=== PATIENT | female | born 1990 | race Caucasian/White ===

== ENCOUNTER 2017-02-26 16:01 | Emergency (ER) | payer MEDICAID ==
[~2017-02-26] VITALS: Ht 152.4 cm; Wt 57.5 kg
[2017-02-26 16:04] VITALS: Ht 152.4 cm; Wt 57.5 kg
--- NOTE | 2017-02-26 18:41 | ERD ---
ER Documentation Chief Complaint Date/Time DATE: 02/26/17 TIME: 18:39 Chief Complaint l/l/q abd pain x 4 days HPI 26-year-old female presents here in emergency department for complaints of left lower quadrant pelvic/abdominal pain for 4 days. Patient discussed the pain as sharp pain, 6/10 scale, not better or worse with anything. Patient so there are days that she cannot defecate. Patient denies any hard stools. Patient denies any hematuria or dysuria. Patient denies any fever or chills. Patient denies any nausea or vomiting. ROS All systems reviewed and are negative except as per history of present illness. Medications Home Meds Reported Medications [none] Unknown Strength No Conflict Check 02/26/17 Allergies Allergies: Coded Allergies: No Known Allergy (Unverified , 02/26/17) PMhx/Soc Medical and Surgical Hx: pt denies Medical Hx, pt denies Surgical Hx FmHx Family History: No coronary disease, No diabetes, No other Physical Exam Vitals Vital Signs Date Time Temp Pulse Resp B/P Pulse Ox O2 Delivery O2 Flow Rate FiO2 02/26/17 16:04 98.6 65 18 98/59 99 Physical Exam GENERAL: The patient is well developed and appropriate for usual state of health, in no apparent distress. CHEST: Clear to auscultation bilaterally. There are no rales, wheezes or rhonchi. HEART: Regular rate and rhythm. No murmurs, clicks, rubs or gallops. No S3 or S4. ABDOMEN: Soft, left lower pelvic quadrant tenderness noted. Good bowel sounds. No rebound or guarding. No gross peritonitis. No gross organomegaly or masses. No Valencia sign or McBurney point tenderness. BACK: No midline or flank tenderness. EXTREMITIES: Equal pulses bilaterally. There is no peripheral clubbing, cyanosis or edema. No focal swelling or erythema. Full range of motion. Grossly neurovascularly intact. NEURO: Alert and oriented. Cranial nerves 2-12 intact. Motor strength in all 4 extremities with 5/5 strength. Sensation grossly intact. Normal speech and gait. SKIN: There is no apparent rash or petechia. The skin is warm and dry. HEMATOLOGIC AND LYMPHATIC: There is no evidence of excessive bruising or lymphedema. No gross cervical, axillary, or inguinal lymphadenopathy. Result Diagram: 02/26/17184702/26/171847 Results 24 hrs Laboratory Tests Test 02/26/17 18:48 02/26/17 19:03 White Blood Count 8.910^3/ul Red Blood Count 4.4610^6/ul Hemoglobin 13.2g/dl Hematocrit 38.0% Mean Corpuscular Volume 85.2fl Mean Corpuscular Hemoglobin 29.6pg Mean Corpuscular Hemoglobin Concent 34.7g/dl Red Cell Distribution Width 11.9% Platelet Count 23831^3/UL Mean Platelet Volume 10.6fl Neutrophils % 60.2% Lymphocytes % 29.6% Monocytes % 7.4% Eosinophils % 1.7% Basophils % 0.9% Nucleated Red Blood Cells % 0.0/100WBC Neutrophils # 5.410^3/ul Lymphocytes # 2.610^3/ul Monocytes # 0.710^3/ul Eosinophils # 0.210^3/ul Basophils # 0.110^3/ul Nucleated Red Blood Cells # 0.010^3/ul Sodium Level 144mmol/L Potassium Level 3.6mmol/L Chloride Level 101mmol/L Carbon Dioxide Level 26mmol/L Anion Gap 21 Blood Urea Nitrogen 10mg/dl Creatinine 0.61mg/dl Glucose Level 84mg/dl Calcium Level 9.3mg/dl Total Bilirubin 0.9mg/dl Direct Bilirubin 0.00mg/dl Indirect Bilirubin 0.9mg/dl Aspartate Amino Transf (AST/SGOT) 30IU/L Alanine Aminotransferase (ALT/SGPT) 47IU/L Alkaline Phosphatase 97IU/L Total Protein 8.2g/dl Albumin 4.7g/dl Globulin 3.50g/dl Albumin/Globulin Ratio 1.34 Lipase 91U/L Bedside Urine pH (LAB) 5.5 Bedside Urine Protein (LAB) Negative Bedside Urine Glucose (UA) Negative Bedside Urine Ketones (LAB) Negative Bedside Urine Blood Negative Bedside Urine Nitrite (LAB) Negative Bedside Urine Leukocyte Esterase (L Negative PROCEDURE: CT of the abdomen and pelvis without contrast CLINICAL INDICATION: Abdominal Pain. TECHNIQUE: Spiral CT images through the abdomen and pelvis without the use of contrast. The administered radiation dose is CTDI 6.24 and DLP 352.2. One or more of the following dose reduction techniques were used: automated exposure control, adjustment of the mA and/or kV according to patient size, or use of iterative reconstruction technique. COMPARISON: None FINDINGS: Lack of oral and intravenous contrast somewhat limits evaluation. Slight dependent atelectasis of the lung bases is seen. No pleural effusion is seen. The liver, spleen, adrenals, kidneys, and pancreas are unremarkable in appearance. Unremarkable gallbladder. No biliary or pancreatic ductal dilatation is seen.. No gross bowel obstruction, free air, or abscess. The appendix is not identified. evidence for diverticulitis. IUD device is seen in place. Mild free fluid is seen in the cul-de-sac. No gross adnexal mass lesion. No adenopathy or ascites is seen. No bony abnormality is seen.. IMPRESSION: IUD device. Mild pelvic free fluid without definite adnexal mass. The appendix is not identified. If there is strong clinical suspicion for appendicitis, repeat study with oral contrast would be suggested. RPTAT: HLBE Physician Olivia Date Time Electronically viewed and signed by Stephanie Goins Physician on 02/26/2017 19 :53 LE/ CC: MOISE RIDER COBBLER MCKAY PROCEDURE: US Pelvis. CLINICAL INDICATION: Abdominal Pain TECHNIQUE: Multiple sonographic images of the pelvis were obtained utilizing a transabdominal and endovaginal technique. The images were reviewed on a PACS workstation. COMPARISON: None. FINDINGS: The uterus is visualized and measures 3.8 x 4.5 x 8.0 cm. The endometrial echo complex is normal and measures 8.0 mm . A centrally located intrauterine device is present. The right ovary measures 2.1 x 2.4 x 4.1 cm The left ovary measures 1.5 x 2.3 x 3.9 cm. There is normal vascular flow to both ovaries. There is moderate free fluid in the pelvis and left adnexa. IMPRESSION: 1. There is moderate free fluid in the pelvis and left adnexa. 2. A centrally located intrauterine device is present. 3. Otherwise, no significant abnormalities are identified. RPTAT:AAJJ Cecil Rodriguez Physician Date Time Electronically viewed and signed by Cecil Rodriguez Physician on 02/26/2017 19: 52 MC/ CC: MOISE RIDER NP Procedures/MDM Medical Decision Making: Patient lower abdominal pain/pelvic pain nonspecific at this time. Patient is due to get her menstruation this week. No diverticulitis noted. No symptoms of any ovarian torsion. There is low suspicion for abdominal emergencies at this time. Patients abdominal exam is normal at this time. Patients radiology exam does not show any abdominal emergencies at this time. There is low suspicion for appendicitis, cholecystitis , abdominal aortic aneurysms or peritonitis at this time. There is low suspicion for sepsis. Patient appears well and is hemodynamically stable. Disposition: Home. Condition: Stable Prescription tramadol, ibuprofen Instructions: Patient is advised to take medications as prescribed. Patient is advised to rest, increase fluid intake and do brat diet for next 1-2 days and progress as tolerated. Patient is advised that if symptoms are worse, severe abdominal pain, uncontrolled vomiting, high fever, severe flank pain, worst signs and symptoms, to return to the emergency department immediately. Otherwise, patient can follow up with primary care doctor in 5-7 days. Departure Diagnosis: Primary Impression: Abdominal pain Abdominal location: left lower quadrant Qualified Code: R10.32 - Left lower quadrant pain Condition: Stable Patient Instructions: Abdominal Pain Additional Instructions: Patient is advised to take medications as prescribed. Patient is advised to rest , increase fluid intake and do brat diet for next 1-2 days and progress as tolerated. Patient is advised that if symptoms are worse, severe abdominal pain , uncontrolled vomiting, high fever, severe flank pain, worst signs and symptoms , to return to the emergency department immediately. Otherwise, patient can follow up with primary care doctor in 5-7 days. MOISE RIDER NP Feb 26, 2017 18:41
[2017-02-26 18:58] LABS: URINE BLOOD (Dip) POC Negative (NEGATIVE)
[2017-02-26 18:59] LABS: BASOPHIL # 0.1 10^3/ul (0.0-0.1); BASOPHILS % 0.9 % (0.0-2.0); EOSINOPHILS # 0.2 10^3/ul (0.0-0.5); EOSINOPHILS % 1.7 % (0.0-7.0); HEMOGLOBIN 13.2 g/dl (12.0-16.0); LYMPHOCYTES # 2.6 10^3/ul (0.8-2.9); LYMPHOCYTES % 29.6 % (15.0-51.0); MEAN CORPUSCULAR HEMOGLOBIN 29.6 pg (29.0-33.0); MEAN CORPUSCULAR HGB CONC 34.7 g/dl (32.0-37.0); MEAN CORPUSCULAR VOLUME 85.2 fl (82.0-101.0); MEAN PLATELET VOLUME 10.6 fl (7.4-10.4); MONOCYTE # 0.7 10^3/ul (0.3-0.9); MONOCYTES % 7.4 % (0.0-11.0); NEUTROPHIL # 5.4 10^3/ul (1.6-7.5); NEUTROPHILS % 60.2 % (39.0-77.0); PLATELET COUNT 311 10^3/UL (140-415); RED BLOOD COUNT 4.46 10^6/ul (4.20-5.40); RED CELL DISTRIBUTION WIDTH 11.9 % (11.5-14.5); WHITE BLOOD COUNT 8.9 10^3/ul (4.8-10.8)
[2017-02-26 19:21] LABS: ALBUMIN 4.7 g/dl (3.3-4.9); ALBUMIN/GLOBULIN RATIO 1.34; BILIRUBIN,INDIRECT 0.9 mg/dl (0-1.1); BILIRUBIN,TOTAL 0.9 mg/dl (0.2-1.3); CALCIUM 9.3 mg/dl (8.4-10.2); CREATININE 0.61 mg/dl (0.44-1.00); POTASSIUM 3.6 mmol/L (3.5-5.1); TOTAL PROTEIN 8.2 g/dl (6.1-8.1)
--- NOTE | 2017-02-26 19:53 | RADRPT ---
PROCEDURE: US Pelvis. CLINICAL INDICATION: Abdominal Pain TECHNIQUE: Multiple sonographic images of the pelvis were obtained utilizing a transabdominal and endovaginal technique. The images were reviewed on a PACS workstation. COMPARISON: None. FINDINGS: The uterus is visualized and measures 3.8 x 4.5 x 8.0 cm. The endometrial echo complex is normal and measures 8.0 mm . A centrally located intrauterine device is present. The right ovary measures 2.1 x 2.4 x 4.1 cm The left ovary measures 1.5 x 2.3 x 3.9 cm. There is normal vascular flow to both ovaries. There is moderate free fluid in the pelvis and left adnexa. IMPRESSION: 1. There is moderate free fluid in the pelvis and left adnexa. 2. A centrally located intrauterine device is present. 3. Otherwise, no significant abnormalities are identified. RPTAT:AAJJ Physician Danette Date Time Electronically viewed and signed by Cecil Rodriguez Physician on 02/26/2017 19:52 /
--- NOTE | 2017-02-26 19:54 | RADRPT ---
PROCEDURE: CT of the abdomen and pelvis without contrast CLINICAL INDICATION: Abdominal Pain. TECHNIQUE: Spiral CT images through the abdomen and pelvis without the use of contrast. The admin istered radiation dose is CTDI 6.24 and DLP 352.2. One or more of the following dose reduction tech niques were used: automated exposure control, adjustment of the mA and/or kV according to patient si ze, or use of iterative reconstruction technique. COMPARISON: None FINDINGS: Lack of oral and intravenous contrast somewhat limits evaluation. Slight dependent atelectasis of the lung bases is seen. No pleural effusion is seen. The liver, spleen, adrenals, kidneys, and pancreas are unremarkable in appearance. Unremarkable gal lbladder. No biliary or pancreatic ductal dilatation is seen.. No gross bowel obstruction, free air , or abscess. The appendix is not identified. evidence for diverticulitis. IUD device is seen in place. Mild free fluid is seen in the cul-de-sac. No gross adnexal mass lesion. No adenopathy or a scites is seen. No bony abnormality is seen.. IMPRESSION: IUD device. Mild pelvic free fluid without definite adnexal mass. The appendix is not identified. If there is strong clinical suspicion for appendicitis, repeat study with oral contrast would be bellamy ggested. RPTAT: HLBE Physician Olivia Date Time Electronically viewed and signed by Physician Olivia on 02/26/2017 19:53 SKYLAR/
[2017-02-26] MEDS ORDERED: TRAM50TA2 PO (20:04)
[2017-02-26] MEDS ORDERED: IBUP-1542 PO (20:04)
== END 2017-02-26 20:12 | disposition home or self-care (01) ==
LOC: FTE 16:01
DX: R10.32 Left lower quadrant pain (principal); R10.2 Pelvic and perineal pain
CPT/HCPCS: 36415; 74176; 76830; 76856; 80053; 81003; 83690; 85025; Z7502